=== PATIENT | female | born 1985 | race African-American/Black ===

== ENCOUNTER 2017-03-30 16:58 | Emergency (ER) | payer SELFPAY ==
[~2017-03-30] VITALS: Ht 165.1 cm; Wt 230.5 kg
[~2017-03-30 16:58] MED LIST: AMOXICILLIN 8751 TAB PO; AUGMENTIN XR 101 TER PO; BACTRIM DS 8001 TAB PO; CEPHALEXIN500 M1 PO; GENTAMICIN OPTHA3 GM OS; NO HOME MEDICATIONS; PRINIVIL2.5 MG PO; RT ADVAIR 228 DISKUS IH; SINGULAIR 110 MG/TAB PO; TUSS PO
[2017-03-30 17:04] VITALS: TEMP 99.1
[2017-03-30 17:56] LABS: BASO % 0.7 % (0.0-2.0); EOS # 0.1 (0.0-0.7); EOS % 1.5 % (0-4.0); GRAN # 2.7 (1.4-6.5); GRAN % 50.2 % (42.2-75.2); HEMATOCRIT 42.6 % (37.0-47.0); HEMOGLOBIN 13.5 g/dl (12.5-16.0); LYMPH # 2.1 (1.2-3.4); MEAN CELL VOLUME 85 fl (80.0-100.0); MEAN CORPUSCULAR HEMOGLOBIN 27 pg (27.0-31.0); MEAN CORPUSCULAR HGB CONC 32 g/dl (33.0-37.0); MEAN PLATELET VOLUME 11.4 fl (7.4-10.4); MONO # 0.5 (0.1-0.6); MONO % 9.6 % (1.7-9.3); PLATELET COUNT 279 K/mm3 (130-400); RED BLOOD COUNT 5.02 M/mm3 (4.10-5.30); REDCELL DISTRIBUTION WIDTH-CV 13.2 % (11.5-14.5); WHITE BLOOD COUNT 5.4 K/mm3 (4.8-10.8)
[2017-03-30 18:21] LABS: ADJUSTED CALCIUM 9.2 mg/dL (8.4-10.2); ALBUMIN 4.4 gm/dL (3.5-5.0); BILIRUBIN,TOTAL 1.1 mg/dL (0.0-1.0); C-REACTIVE PROTEIN 1.2 mg/dL (0.0-0.9); CALCIUM 9.5 mg/dL (8.4-10.2); CREATININE, serum 0.93 mg/dL (0.52-1.25); POTASSIUM 3.7 mmol/L (3.4-5.0); TOTAL PROTEIN 8.5 gm/dL (6.4-8.2)
[2017-03-30] MEDS ORDERED: PREDNISONE20 MG PO (18:59)
[2017-03-30 19:07] VITALS: BP 132/88; PULSE 100
== END 2017-03-30 19:08 | disposition home or self-care (01) ==
LOC: COL.ER 16:58
PROVIDERS: Emergency Medicine
DX: L29.9 Pruritus, unspecified (principal); R20.2 Paresthesia of skin; I10 Essential (primary) hypertension; J45.909 Unspecified asthma, uncomplicated; E66.01 Morbid (severe) obesity due to excess calories; Z68.45 Body mass index [BMI] 70 or greater, adult
CPT/HCPCS: J7512

== ENCOUNTER 2017-08-23 13:24 | Emergency (ER) | payer BC ==
[~2017-08-23] VITALS: Ht 165.1 cm; Wt 236.4 kg
[~2017-08-23 13:24] MED LIST changes: +PREDNISONE20 MG PO
[2017-08-23 13:28] VITALS: BP 180/94; TEMP 98.5
[2017-08-23] MEDS ORDERED: MULTI VITAMINS1 TAB PO (13:30)
[2017-08-23] MEDS ORDERED: OMEGA-3 1000 MG1 CAP PO (13:31)
[2017-08-23] MEDS ORDERED: PROTONIX20 MG PO (13:31)
[2017-08-23 14:34] LABS: BASO % 0.6 % (0.0-2.0); EOS # 0.1 (0.0-0.7); GRAN # 2.9 (1.4-6.5); GRAN % 59.5 % (42.2-75.2); HEMATOCRIT 39.7 % (37.0-47.0); HEMOGLOBIN 12.5 g/dl (12.5-16.0); LYMPH # 1.4 (1.2-3.4); LYMPH % 29.5 % (20.0-51.0); MEAN CELL VOLUME 84 fl (80.0-100.0); MEAN CORPUSCULAR HEMOGLOBIN 26 pg (27.0-31.0); MEAN CORPUSCULAR HGB CONC 32 g/dl (33.0-37.0); MEAN PLATELET VOLUME 10.7 fl (7.4-10.4); MONO # 0.4 (0.1-0.6); MONO % 8.2 % (1.7-9.3); PLATELET COUNT 260 K/mm3 (130-400); RED BLOOD COUNT 4.75 M/mm3 (4.10-5.30); REDCELL DISTRIBUTION WIDTH-CV 12.7 % (11.5-14.5); WHITE BLOOD COUNT 4.9 K/mm3 (4.8-10.8)
[2017-08-23 14:52] LABS: BILIRUBIN,TOTAL 0.7 mg/dL (0.0-1.0); CREATININE, serum 0.81 mg/dL (0.52-1.25); POTASSIUM 4.1 mmol/L (3.4-5.0); TOTAL PROTEIN 7.9 gm/dL (6.4-8.2)
[2017-08-23] MEDS ORDERED: NORCO 325 MG-51 TAB PO (15:08)
[2017-08-23 15:19] VITALS: PULSE 80
[2017-08-23 17:35] LABS: CHLAMYDIA/TRACH by PCR Female NOT DETECTED; NEISSERIA GON by PCR Female NOT DETECTED
== END 2017-08-23 15:20 | disposition home or self-care (01) ==
LOC: COL.ER 13:24
PROVIDERS: Nurse Practitioner
DX: N93.8 Other specified abnormal uterine and vaginal bleeding (principal); R73.03 Prediabetes; I10 Essential (primary) hypertension; E28.2 Polycystic ovarian syndrome; E66.01 Morbid (severe) obesity due to excess calories; Z68.45 Body mass index [BMI] 70 or greater, adult; R51 Headache; R53.83 Other fatigue
CPT/HCPCS: J1885

== ENCOUNTER 2019-01-24 09:11 | Emergency (ER) | payer SELFPAY ==
[~2019-01-24] VITALS: Ht 165.1 cm; Wt 240.9 kg
[~2019-01-24 09:11] MED LIST changes: +MULTI VITAMINS1 TAB PO; +NORCO 325 MG-51 TAB PO; +OMEGA-3 1000 MG1 CAP PO; +PROTONIX20 MG PO
[2019-01-24 09:16] VITALS: TEMP 97.7
[2019-01-24] MEDS ORDERED: PRINIVIL10 MG PO (09:45)
[2019-01-24] MEDS ORDERED: SINGULAIR 110 MG/TAB PO (09:46)
[2019-01-24 10:41] VITALS: BP 133/77
[2019-01-24] MEDS ORDERED: DOXYCYCLINE 10100 MG PO (10:44)
[2019-01-24 10:57] VITALS: PULSE 88
== END 2019-01-24 10:57 | disposition home or self-care (01) ==
LOC: COL.ER 09:11
DX: J18.1 Lobar pneumonia, unspecified organism (principal); J45.909 Unspecified asthma, uncomplicated; E66.01 Morbid (severe) obesity due to excess calories; Z68.45 Body mass index [BMI] 70 or greater, adult

== ENCOUNTER 2020-02-02 13:38 | Emergency (ER) | payer SELFPAY ==
[~2020-02-02] VITALS: Ht 165.1 cm; Wt 245.5 kg
[~2020-02-02 13:38] MED LIST changes: +DOXYCYCLINE 10100 MG PO; +PRINIVIL10 MG PO
[2020-02-02 13:44] VITALS: BP 144/88; TEMP 98.3
[2020-02-02] MEDS ORDERED: AMOXICILLIN 8751 TAB PO (13:59)
[2020-02-02 14:09] VITALS: PULSE 87
== END 2020-02-02 14:08 | disposition home or self-care (01) ==
LOC: COL.ER 13:38
DX: K02.9 Dental caries, unspecified (principal)

== ENCOUNTER 2021-01-16 09:45 | Emergency (ER) | payer OTHER ==
[~2021-01-16] VITALS: Ht 165.1 cm; Wt 253.6 kg
[2021-01-16 09:48] VITALS: TEMP 97.8
[2021-01-16 13:32] VITALS: BP 166/79; PULSE 89
== END 2021-01-16 13:00 | disposition home or self-care (01) ==
LOC: COL.ER 09:45
DX: J06.9 Acute upper respiratory infection, unspecified (principal); J45.909 Unspecified asthma, uncomplicated; E66.01 Morbid (severe) obesity due to excess calories; Z20.822 Contact with and (suspected) exposure to COVID-19; Z68.45 Body mass index [BMI] 70 or greater, adult
CPT/HCPCS: J7030

== ENCOUNTER 2021-04-25 09:25 | Emergency (ER) | payer SELFPAY ==
[~2021-04-25] VITALS: Ht 165.1 cm; Wt 250.0 kg
[2021-04-25 09:38] VITALS: TEMP 98.4
[2021-04-25] MEDS ORDERED: PROAIR HFA0.09 MG/AC IH (09:46)
[2021-04-25 10:41] LABS: BASO % 0.7 % (0.0-2.0); EOS # 0.1 (0.0-0.7); EOS % 2.5 % (0-4.0); GRAN % 53.4 % (42.2-75.2); HEMATOCRIT 38.2 % (37.0-47.0); HEMOGLOBIN 11.4 g/dl (12.5-16.0); LYMPH # 1.8 (1.2-3.4); LYMPH % 31.3 % (20.0-51.0); MEAN CELL VOLUME 85 fl (80.0-100.0); MEAN CORPUSCULAR HEMOGLOBIN 25 pg (27.0-31.0); MEAN CORPUSCULAR HGB CONC 30 g/dl (33.0-37.0); MEAN PLATELET VOLUME 11.4 fl (7.4-10.4); MONO # 0.7 (0.1-0.6); MONO % 11.7 % (1.7-9.3); PLATELET COUNT 281 K/mm3 (130-400); RED BLOOD COUNT 4.49 M/mm3 (4.10-5.30)
[2021-04-25 10:47] LABS: ALANINE AMINOTRANSFERASE 27 U/L (4-34); ALBUMIN 3.9 gm/dL (3.5-5.0); ALKALINE PHOSPHATASE 88 U/L (50-136); ANION GAP 2 mmol/L (7-16); AST,SGOT 41 U/L (15-37); BILIRUBIN,TOTAL 0.3 mg/dL (0.0-1.0); BLOOD UREA NITROGEN 15 mg/dL (7-17); CALCIUM 8.7 mg/dL (8.4-10.2); CARBON DIOXIDE 30 mmol/L (22-30); CHLORIDE 107 mmol/L (98-107); CREATININE, serum 0.85 (0.52-1.25); GLUCOSE 113 mg/dL (74-106); SODIUM 139 mmol/L (137-145); TOTAL PROTEIN 7.9 gm/dL (6.4-8.2)
[2021-04-25 11:00] LABS: TROPONIN-I < 0.012 ng/mL (0.000-0.035)
[2021-04-25 11:12] LABS: C-REACTIVE PROTEIN 1.2 mg/dL (0.0-0.9)
[2021-04-25] MEDS ORDERED: PREDNISONE20 MG PO (14:28)
[2021-04-25 14:38] VITALS: BP 122/86; PULSE 87
[2021-04-25] MEDS ORDERED: FLEXERIL 1010 MG/TAB PO (14:39)
== END 2021-04-25 14:57 | disposition home or self-care (01) ==
LOC: COL.ER 09:25
PROVIDERS: Nurse Practitioner
DX: J45.901 Unspecified asthma with (acute) exacerbation (principal); M62.830 Muscle spasm of back; I10 Essential (primary) hypertension; E66.2 Morbid (severe) obesity with alveolar hypoventilation; Z79.899 Other long term (current) drug therapy; Z68.45 Body mass index [BMI] 70 or greater, adult

== ENCOUNTER 2022-04-05 18:31 | Emergency (ER) | payer SELFPAY ==
[~2022-04-05] VITALS: Ht 165.1 cm; Wt 254.5 kg
[~2022-04-05 18:31] MED LIST changes: +FLEXERIL 1010 MG/TAB PO; +PROAIR HFA0.09 MG/AC IH
[2022-04-05 18:41] VITALS: BP 166/96; TEMP 98.6
[2022-04-05] MEDS ORDERED: AMOXICILLIN 50500 MG PO (20:58)
[2022-04-05] MEDS ORDERED: NORCO 325 MG-51 TAB PO (20:59)
[2022-04-05 21:34] VITALS: PULSE 90
== END 2022-04-05 21:30 | disposition home or self-care (01) ==
LOC: COL.ER 18:31
DX: K04.7 Periapical abscess without sinus (principal)